=== PATIENT | female | born 1965 | race Caucasian/White ===

== ENCOUNTER 2019-07-01 07:18 | Outpatient (CLI) | payer BC, SELFPAY ==
--- NOTE | 2019-07-01 07:36 | ECG_ITS ---
NAME OF STUDY: EXERCISE SESTAMIBI STRESS TEST INDICATION: Abnormal ekg Baseline blood pressure of 144/89 mm Hg, heart rate 78 beats per minute and oxygen saturation 94%. EKG showed sinus tachycardia with normal ST-Ts. The patient exercised for 5 minutes on a standard John protocol. Patient attained a maximum heart rate of 156 beats per minute(93 % of the maximum predicted heart rate) with a blood pressure at the peak exercise of 226/93 mm Hg and oxygen saturation 93%. The EKG at the peak exercise revealed sinus tachycardia with 1 mm up-sloping ST depression not meeting diagnostic criteria for ischemia. Patient did not have any chest pain or any significant arrhythmia with the exercise During the recovery phase, there were no new changes. Blood pressure at the end of the recovery phase was 151/94 mm Hg with a heart rate of 106 beats per minute and oxygen saturation 95%. CONCLUSION: 1. Normal EKG response to treadmill exercise 2. No exercise-induced chest pain or cardiac arrhythmia 3. Fair exercise tolerance, attained a maximum of 7 METs. Maximum VO2 of 24.5 mL/kg/min. 4. Baseline hypertension with hypertensive response to exercise. 5. Perfusion scan will be documented separately. Electronically Signed On 07-02-2019 13:21:13 AUTOMATIC [employer]IL MACHINE OPERATOR by Praveena Gr M.D. [email or web address]
--- NOTE | 2019-07-01 07:37 | NMCV_ITS ---
MI MIBI/MIBI Stress/Rest [id number] Georgina Jamil Age: 53 Gender: F : 1965 Exam Date: 07/01/2019 08:35 Ordering Phys: Ratna Baker MD Technologist: CORWIN Rocha Exam Location: [facility] Indications: Abnormal EKG STRESS TEST [facility] IMAGE PROTOCOL Rest/Stress 1 Exercise Day Radiopharmaceutical Dose (mCi) Administration Site Administered by Rest: Tc-99m 10.4 IV CORWIN Rocha Sestamibi Stress:Tc-99m 32.3 IV CORWIN Laureano Sestamibi Rest: 01-Jul-2019 60 Discovery 630 Stress: 01-Jul-2019 30 Discovery 630 Radiopharmaceutical was injected at 87 % maximum heart rate. SPECT RESULTS Technical Quality: Good Raw Data Analysis: Normal 36B chest wall Image Corrections: No attenuation or motion correction applied Summed Stress Score: 3 Summed Rest Score: 3 Summed Difference Score: 0 PERFUSION FINDINGS Small size perfusion abnormality of moderate severity of mid to apical inferior wall on rest and supine stress images. There is improved tracer uptake on inferior wall on prone stress images. This is suggestive of attenuation artifact. FUNCTIONAL RESULTS (calculated via Gated SPECT) Stress Image LV EF (%): 76 Stress EDV (mL):78 TID: 1.1 Stress ESV (mL):19 FUNCTIONAL FINDINGS: The left ventricle is normal in size. Transient Ischemia Dilatation of 1.1. There is normal left ventricular systolic function. The left ventricular ejection fraction is normal with a value of 76%. There is normal left ventricular wall thickening. Normal end-diastolic and end-systolic volumes. IMPRESSIONS 1. Myocardial perfusion imaging is normal. Attenuation artifact noted in mid to apical inferior wall. 2. Overall left ventricular systolic function is normal without regional wall motion abnormalities. 3. The left ventricular ejection fraction is normal with a value of 76%. 4. No coronary ischemia based on the study. Praveena Gr MD (Electronically Signed) Final Date: 01 July 2019 13:23 S
[2019-07-01 07:57] VITALS: BMI 25.8
[2019-07-01 10:04] VITALS: BP 151/94; PULSE 99
== END 2019-07-01 07:19 | disposition home or self-care (01) ==
LOC: CDL 07:20
PROVIDERS: Family Provider Family Medicine; PCP Family Medicine; Visit Provider Family Medicine
DX: R94.31 Abnormal electrocardiogram [ECG] [EKG] (principal)
CPT/HCPCS: 78452; 93017; A9500

== ENCOUNTER 2022-05-17 13:11 | Outpatient (CLI) | payer MEDICAID, SELFPAY ==
--- NOTE | 2022-05-17 13:25 | MM_ITS ---
WS: [id number] BILATERAL 3D TOMOSYNTHESIS DIGITAL SCREENING MAMMOGRAPHY WITH CAD CLINICAL INFORMATION: SCREENING COMPARISON: 2019 TECHNIQUE: Bilateral CC and MLO views. FINDINGS: Scattered fibroglandular densities bilaterally. No suspicious focal mass, asymmetry, calcifications, or architectural distortion. No evidence of malignancy. Lucent centered calcification LEFT breast. A few incidental punctate calcifications RIGHT breast. MM/[place] [id number] IMPRESSION: BI-RADS: 2-Benign FOLLOW UP: 1 Year Follow-up Recommend return to annual screening mammography.
== END 2022-05-17 13:12 | disposition home or self-care (01) ==
LOC: RAD 13:12
PROVIDERS: Family Provider Family Medicine; PCP Family Medicine; Visit Provider Family Medicine
DX: Z12.31 Encounter for screening mammogram for malignant neoplasm of breast (principal)
CPT/HCPCS: 77063; 77067

== ENCOUNTER 2023-05-24 15:06 | Outpatient (CLI) | payer BC, MEDICAID, SELFPAY ==
--- NOTE | 2023-05-24 15:11 | MM_ITS ---
WS: [id number] BILATERAL 3D TOMOSYNTHESIS DIGITAL SCREENING MAMMOGRAPHY WITH CAD CLINICAL INFORMATION: SCREENING HISTORY: Screening mammogram. No current complaints. COMPARISON: 2021 TECHNIQUE: Bilateral CC and MLO views. FINDINGS: Scattered fibroglandular densities bilaterally. No suspicious focal mass, asymmetry, calcifications, or architectural distortion. No evidence of malignancy. Lucent centered calcification LEFT breast. Fe w incidental punctate calcifications. IMPRESSION: MM/[place] [id number] BI-RADS: 2-Benign FOLLOW UP: 1 Year Follow-up Recommend return to annual screening mammography.
== END 2023-05-24 15:07 | disposition home or self-care (01) ==
PROVIDERS: Family Provider Family Medicine; PCP Family Medicine; Visit Provider Family Medicine
DX: Z12.31 Encounter for screening mammogram for malignant neoplasm of breast (principal)
CPT/HCPCS: 77063; 77067

== ENCOUNTER 2024-10-30 13:29 | Outpatient (CLI) | payer BC, MEDICAID, SELFPAY ==
--- NOTE | 2024-10-30 | MM_ITS ---
WS: [id number] BILATERAL 3D TOMOSYNTHESIS DIGITAL SCREENING MAMMOGRAPHY WITH CAD CLINICAL INFORMATION: ANNUAL SCREENING HISTORY: Screening mammogram. No current complaints. COMPARISON: 2022 TECHNIQUE: Bilateral CC and MLO views. FINDINGS: Scattered fibroglandular densities bilaterally. No suspicious focal mass, asymmetry, calcifications, or architectural distortion. No evidence of malignancy. Lucent centered calcification LEFT breast . Vascular calcification. MM/MM scr tomosynthesis [id number] IMPRESSION: DENSITY: There are scattered areas of fibroglandular density. BI-RADS: 2 - Benign. FOLLOW UP: 1 Year Follow-up Recommend return to annual screening mammography.
== END 2024-10-30 13:30 | disposition home or self-care (01) ==
LOC: RAD 13:30
PROVIDERS: Family Provider Family Medicine; PCP Family Medicine; Visit Provider Family Medicine
DX: Z12.31 Encounter for screening mammogram for malignant neoplasm of breast (principal); R92.323 Mammographic fibroglandular density, bilateral breasts; R92.1 Mammographic calcification found on diagnostic imaging of breast
CPT/HCPCS: 77063; 77067

== ENCOUNTER 2025-04-21 16:14 | Outpatient (CLI) | payer BC, MEDICAID, SELFPAY ==
--- NOTE | 2025-04-21 16:25 | CT_ITS ---
WS: [id number] CT ABDOMEN AND PELVIS NONCONTRAST HISTORY: HEMATURIA, DYSURIA TECHNIQUE: Imaging performed through the abdomen and pelvis. Coronal and sagittal reformats are submitted. All CT scans at [facility] use at least one of these dose optimization techniques: automated exposure control; mA and/or kV adjustment per patient size (includes targeted exams where dose is matched to clinical indication); or iterative reconstruction. DLP: 368.20 mGy.cm COMPARISON: None available. Lower thorax: Lung bases are clear. Visualized heart is normal. No hiatal hernia. Liver: Normal size liver. No mass or bile duct dilatation. Gallbladder: Mildly contracted. Pancreas: Normal size and attenuation. Normal pancreatic duct. No pancreatitis or mass. Spleen: Normal. Adrenal glands: Bilateral adrenal gland masses. RIGHT adrenal gland measures 1.1 cm. LEFT adrenal gland mass measures 1.2 cm. Hounsfield units are low consistent with adenomas. Right kidney: Normal size kidney with no mass or hydronephrosis. Left kidney: Normal size kidney with no mass or hydronephrosis. Aorta: Mild atherosclerosis abdominal aorta with no aneurysm. No free fluid, intraperitoneal air or significant lymphadenopathy. GI tract: Normal noncontrast imaging of the stomach, small bowel and colon. No obstruction or wall thickening. Normal appendix. There is a curvilinear coarse calcification in the RIGHT lower quadrant associated with the distal small bowel. There is no obstruction. No adjacent inflammation. Abdominal wall: Small umbilical hernia contains fat only. Pelvis: Nondistended bladder. No free fluid or adenopathy. Osseous structures: Expansile well-circumscribed lytic mass in the sacrum measures 3.4 x 3.1 cm. Smaller central and inferior lytic expansile masses. These are probably neuroforaminal cysts. CT/CT kidney stone [id number] IMPRESSION: 1. No renal obstruction or perinephric stranding. 2. Normal appendix. 3. Curvilinear calcification in the RIGHT pelvis associated with small bowel. Most likely this is benign. This can be further evaluated in 6 months if clinic ally thought necessary by CT to evaluate for any interval change. 4. Expansile lytic lesions in the sacrum. Most typical for neuroforaminal cyst s. These can cause discomfort. For further evaluation MRI pelvis centered on th e sacrum with and without contrast would be of benefit.
== END 2025-04-21 16:15 | disposition home or self-care (01) ==
LOC: RAD 16:16
PROVIDERS: PCP Nurse Practitioner Family; Visit Provider Nurse Practitioner Family
DX: R31.9 Hematuria, unspecified (principal); R30.0 Dysuria; K82.0 Obstruction of gallbladder; D35.01 Benign neoplasm of right adrenal gland; D35.02 Benign neoplasm of left adrenal gland; K42.9 Umbilical hernia without obstruction or gangrene; M99.04 Segmental and somatic dysfunction of sacral region
CPT/HCPCS: 74176